=== PATIENT | male | born 2005 | race African-American/Black ===

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

== ENCOUNTER 2025-07-30 17:38 | Emergency (ER) | payer SELFPAY | END 2025-07-30 19:25 | disposition left against medical advice (07) | LOC: ERS 17:38 | DX: Z53.21 Procedure and treatment not carried out due to patient leaving prior to being seen by health care provider (principal) | CPT/HCPCS: 93005 ==